=== PATIENT | female | born 1990 | race American Indian/Alaskan Native ===

== ENCOUNTER 2018-05-06 01:22 | Emergency (ER) | payer MEDICAID ==
[2018-05-06] MEDS ORDERED: TYLENOL PO ONE (02:20)
[2018-05-06] MEDS ORDERED: TYLENOL ONE (02:21)
[2018-05-06 03:24] LABS: Bacteria,Urine 2+ /HPF (Negative); Bilirubin,Urine NEG (Negative); Blood,Urine SM (Negative); Color,Urine Yellow (Yellow); Hyaline Casts,Urine 1 /LPF; Mucus,Urine 1+ /HPF
[2018-05-06 03:27] LABS: HCG Qualitative,Urine Negative (Negative)
[2018-05-06] MEDS ORDERED: ZOFRAN ODT ONE (03:45)
[2018-05-06] MEDS ORDERED: ZOFRAN ODT PO ONE (03:49)
[2018-05-06] MEDS ORDERED: ROCEPHIN IM ONE (04:09)
[2018-05-06] MEDS ORDERED: XYLOCAINE 1% MPF 5 mL INFILTRATI ONE (04:09)
[2018-05-06 04:44] LABS: Basophils # (Auto) 0.1 K/mm3 (0.0-0.1); Basophils % (Auto) 1.3 % (0.0-1.8); Eosinophils # (Auto) 0.1 K/mm3 (0.0-0.4); Eosinophils % (Auto) 1.3 % (0.0-4.3); Hematocrit 39.7 % (30.3-42.9); Hemoglobin 13.3 gm/dl (10.1-14.3); Lymphocytes # (Auto) 2.8 K/mm3 (1.2-5.4); Lymphocytes % (Auto) 29.2 % (13.4-35.0); Mean Corpuscular HGB Conc 33 % (30-34); Mean Corpuscular Hemoglobin 29 pg (28-32); Mean Corpuscular Volume 86 fl (79-97); Monocytes # (Auto) 0.8 K/mm3 (0.0-0.8); Monocytes % (Auto) 8.3 % (0.0-7.3); Platelet Count 296 K/mm3 (140-440); Red Blood Count 4.64 M/mm3 (3.65-5.03); Red Cell Distribution Width 13.8 % (13.2-15.2)
[2018-05-06] MEDS ORDERED: MOTRIN PO ONE (04:47)
--- NOTE | 2018-05-06 04:49 | Emergency Department Report ---
ED Female HPI - General Chief complaint: Back Pain/Injury Stated complaint: ABD PAIN Time Seen by Provider: 05/06/18 04:08 Source: patient Mode of arrival: Ambulatory Limitations: No Limitations - History of Present Illness Initial comments: This is a 27-year-old female nontoxic, well nourished in appearance, no acute signs of distress presents to the ED with c/o of low back pain with dysuria, polyuria, emergency area times one week. Patient stated that she had an episode of one vomiting with nausea but currently in the ED denies any nausea or vomiting. patient denies any trauma to the back. Patient denies any radiation of pain. Patient describes pain as aching with episodes. Patient denies any vaginal discharge. Patient denies any vaginal ulcers or lesions. Patient denies any nausea, vomiting, chest pain, shortness of breathe, fever, chills, headache, numbness, tingling, stiff neck. Patient denies any urinary symptoms. Patient denies any allergies with PMH includes DM. MD Complaint: dysuria, other (back pain) -: week(s) (1) Severity: mild Severity scale (0 -10): 8 Quality: burning, aching Consistency: constant Improves with: none Worsens with: urination Are you Now?: No Last Menstrual Period: 04/10/18 EDC: 01/15/19 Associated Symptoms: dysuria, hematuria. denies: vaginal discharge, vaginal bleeding, abdominal pain, nausea/vomiting, fever/chills, headaches, loss of appetite, rash, seizure, shortness of breath, syncope, weakness - Related Data Previous Rx's Medication Instructions Recorded Last Taken Type Ciprofloxacin HCl [Ciprofloxacin 500 mg PO Q12HR #14 tab 05/06/18 Unknown Rx TAB] Allergies Allergy/AdvReac Type Severity Reaction Status Date / Time No Known Allergies Allergy Verified 05/06/18 02:24 ED Review of Systems ROS: Stated complaint: ABD PAIN Other details as noted in HPI Constitutional: denies: chills, fever Eyes: denies: eye pain, eye discharge, vision change ENT: denies: ear pain, throat pain Respiratory: denies: cough, shortness of breath, wheezing Cardiovascular: denies: chest pain, palpitations Endocrine: no symptoms reported Gastrointestinal: denies: abdominal pain, nausea, diarrhea Genitourinary: urgency, dysuria, frequency, hematuria. denies: discharge, abnormal menses, dyspareunia Musculoskeletal: back pain. denies: joint swelling, arthralgia Skin: denies: rash, lesions Neurological: denies: headache, weakness, paresthesias Psychiatric: denies: anxiety, depression Hematological/Lymphatic: denies: easy bleeding, easy bruising ED Past Medical Hx - Past Medical History Previous Medical History?: Yes Hx Diabetes: Yes (TYPE 2) - Surgical History Past Surgical History?: No - Social History Smoking Status: Never Smoker Substance Use Type: Alcohol - Medications Home Medications: Home Medications Medication Instructions Recorded Confirmed Last Taken Type Ciprofloxacin HCl [Ciprofloxacin 500 mg PO Q12HR #14 tab 05/06/18 Unknown Rx TAB] ED Physical Exam - General Limitations: No Limitations General appearance: alert, in no apparent distress - Head Head exam: Present: atraumatic, normocephalic - Eye Eye exam: Present: normal appearance Pupils: Present: normal accommodation - ENT ENT exam: Present: normal exam, mucous membranes moist - Neck Neck exam: Present: normal inspection, full ROM - Respiratory Respiratory exam: Present: normal lung sounds bilaterally. Absent: respiratory distress, wheezes, rales, rhonchi, stridor, chest wall tenderness, accessory muscle use, decreased breath sounds, prolonged expiratory - Cardiovascular Cardiovascular Exam: Present: regular rate, normal rhythm, normal heart sounds. Absent: irregular rhythm, systolic murmur, diastolic murmur, rubs, gallop - GI/Abdominal GI/Abdominal exam: Present: soft, normal bowel sounds. Absent: distended, tenderness, guarding, rebound, rigid, diminished bowel sounds - Rectal Rectal exam: Present: deferred - Extremities Exam Extremities exam: Present: normal inspection, full ROM, normal capillary refill. Absent: tenderness - Back Exam Back exam: Present: normal inspection, full ROM, paraspinal tenderness (lumbar region). Absent: tenderness, CVA tenderness (R), CVA tenderness (L), muscle spasm, vertebral tenderness, rash noted - Expanded Back Exam Expanded Back exam: Absent: saddle anesthesia Back exam: Negative Straight Leg Raising: Left, Right - Neurological Exam Neurological exam: Present: alert, oriented X3, normal gait - Psychiatric Psychiatric exam: Present: normal affect, normal mood - Skin Skin exam: Present: warm, dry, intact, normal color. Absent: rash ED Course Vital Signs 05/06/18 02:26 Temperature 98.6 F Pulse Rate 115 H Respiratory 18 Rate Blood Pressure 120/81 O2 Sat by Pulse 98 Oximetry - Reevaluation(s) Reevaluation #1: 05/06/18 04:49 Patient is speaking in full sentences with no signs of distress noted. ED Medical Decision Making - Lab Data Result diagrams: 05/06/18 04:27 - Medical Decision Making This is a 27-year-old male that presents with UTI. Patient is stable was examined by me. UA with elevated WBCs, leukocytes, and RBCs. PAtient received Rocephin IM. Urine culture ordered and pending. There is no spinal tenderness. There is no cauda equina syndrome during examination. No bladder or bowel instability. Patient received Motrin in the ED which patient stated that symptoms has resolved and subsided. Patient is discharged with Motrin and Cipro. Patient was referred to Follow-up with a primary care doctor in 3-5 days or if symptoms worsen and continue return to emergency room as soon as possible. At time of discharge, the patient does not seem toxic or ill in appearance. No acute signs of distress noted. Patient agrees to discharge treatment plan of care. No further questions noted by the patient. This chart is dictated with using [employer] Critical care attestation.: If time is entered above; I have spent that time in minutes in the direct care of this critically ill patient, excluding procedure time. ED Disposition Clinical Impression: UTI (urinary tract infection) Qualifiers: Urinary tract infection type: site unspecified Hematuria presence: with hematuria Qualified Code(s): N39.0 - Urinary tract infection, site not specified ; R31.9 - Hematuria, unspecified Disposition: DC-01 TO HOME OR SELFCARE Is pt being admited?: No Does the pt Need Aspirin: No Condition: Stable Instructions: Urinary Tract Infection in Women (ED), Ciprofloxacin (By mouth) Additional Instructions: Follow-up with your primary care doctor in 3-5 days or if symptoms worsen such as bladder or bowel stability, chest pain, short of breath, numbness or tingling sensation in extremities, headache, dizziness, visual changes, nausea vomiting, or abdominal pain, return back to emergency room as was possible. Prescriptions: Ciprofloxacin HCl [Ciprofloxacin TAB] 500 mg PO Q12HR #14 tab Referrals: ROBERT VILLAREAL MD [Primary Care Provider] - 3-5 Days PRIMARY CAREMD [Referring] - 3-5 Days CRISTI LLANOS MD [Staff Physician] - 3-5 Days [facility] [Outside] - 3-5 Days [facility] [Outside] - 3-5 Days Forms: Work/School Release Form(ED)
[2018-05-06 05:07] LABS: BUN/Creatinine Ratio 10; Blood Urea Nitrogen 7 mg/dL (7-17); Calcium 9.3 mg/dL (8.4-10.2); Hemolysis Index 1
[2018-05-06 05:43] VITALS: BP 122/80
== END 2018-05-06 05:43 | disposition home or self-care (01) ==
LOC: ED 01:22
DX: N39.0 Urinary tract infection, site not specified (principal); E11.9 Type 2 diabetes mellitus without complications
CPT/HCPCS: 36415; 80048; 81001; 81025; 85025; 87086; 96372; 99283; J0696; 87076; 87186; Q0162

== ENCOUNTER 2019-04-12 00:29 | Emergency (ER) | payer OTHER ==
[2019-04-12] MEDS ORDERED: TYLENOL ONE (00:40)
[2019-04-12] MEDS ORDERED: TYLENOL PO ONE (00:40)
[2019-04-12 01:11] LABS: Basophils # (Auto) 0.1 K/mm3 (0.0-0.1); Basophils % (Auto) 0.7 % (0.0-1.8); Eosinophils # (Auto) 0.2 K/mm3 (0.0-0.4); Eosinophils % (Auto) 2.1 % (0.0-4.3); Hematocrit 40.6 % (30.3-42.9); Hemoglobin 13.4 gm/dl (10.1-14.3); Lymphocytes # (Auto) 2.6 K/mm3 (1.2-5.4); Mean Corpuscular HGB Conc 33 % (30-34); Mean Corpuscular Volume 86 fl (79-97); Monocytes # (Auto) 0.7 K/mm3 (0.0-0.8); Monocytes % (Auto) 8.1 % (0.0-7.3); Platelet Count 325 K/mm3 (140-440); Red Cell Distribution Width 13.9 % (13.2-15.2)
[2019-04-12 01:17] LABS: Bacteria,Urine 1+ /HPF (Negative); Bilirubin,Urine NEG (Negative); Blood,Urine MOD (Negative); Color,Urine Yellow (Yellow)
[2019-04-12 01:18] LABS: WBC,Urine > 182.0 /HPF (0.0-6.0)
[2019-04-12 01:31] LABS: Alanine Aminotransferase 28 units/L (7-56); Albumin 4.1 g/dL (3.9-5); BUN/Creatinine Ratio 15; Blood Urea Nitrogen 9 mg/dL (7-17); Calcium 9.8 mg/dL (8.4-10.2); Hemolysis Index 9
[2019-04-12] MEDS ORDERED: NACL 0.9% 1000 ML 1,000 ML IV ONE (03:51)
[2019-04-12] MEDS ORDERED: ZOFRAN IV ONE (03:51)
[2019-04-12] MEDS ORDERED: ROCEPHIN/NS 1 GM/50 ML 1 GM/50 ML BAG IV ONE (03:51)
[2019-04-12] MEDS ORDERED: TORADOL IV ONE (03:51)
--- NOTE | 2019-04-12 05:49 | Cat Scan Report ---
PROCEDURE: CT ABDOMEN PELVIS WO CON TECHNIQUE: Routine axial imaging was obtained of the abdomen and pelvis without oral or IV contrast. Sagittal and coronal reconstructions were reviewed. HISTORY: abd pain COMPARISONS: None FINDINGS: The lung bases are clear. Pleural fluid is not seen. The liver, gallbladder and biliary tree appear normal. The pancreas, spleen, and adrenal glands appea r normal. The kidneys show no evidence of stones or hydronephrosis. The bowel loops are normal in leif iber and course. The appendix is not enlarged. There is no evidence of free fluid or adenopathy. In the pelvis the uterus and bladder appear normal. There are multiple phleboliths along the floor of the pelvis. There is a punctate calcification in close proximity to the left UVJ. A nonobstructing 1 mm calcification in the distal left UVJ cannot entirely be ruled out. The skeletal structures appear well-maintained. IMPRESSION: No acute process in the abdomen and pelvis. No evidence renal stones or hydronephrosis. Suspicious 1 mm in diameter calcification in the expected position of the left UVJ. A nonobstructing stone in the distal left ureter cannot entirely be ruled out.. This document is electronically signed by Anil Melendez MD., Apr 12 2019 05:47:17 AM ET
--- NOTE | 2019-04-12 05:56 | Emergency Department Report ---
ED Abdominal Pain HPI - General Chief Complaint: Abdominal Pain Stated Complaint: LEFT LOWER FLANK PAIN Time Seen by Provider: 04/12/19 03:50 Source: patient Mode of arrival: Ambulatory Limitations: No Limitations - History of Present Illness Initial Comments: pt pt is a 28 y/o aaf who presents for left flank pain radiating to superpubic x 4 days pt deneis fever or chills, no n/v no hematuria no hx of renal stones MD Complaint: flank pain Onset/Timin -: days(s) Location: L flank Radiation: suprapubic Migration to: suprapubic Severity: moderate Severity scale (0 -10): 7 Quality: sharp Consistency: intermittent Improves With: rest Worsens With: other (voiding ) Associated Symptoms: nausea, dysuria. denies: vomiting, diarrhea, fever, chills, constipation, melena - Related Data LMP Date: 03/28/19 Previous Rx's Medication Instructions Recorded Last Taken Type Ciprofloxacin HCl [Ciprofloxacin 500 mg PO Q12HR #14 tab 05/06/18 Unknown Rx TAB] Ciprofloxacin HCl [Ciprofloxacin 500 mg PO BID 10 Days #20 tab 04/12/19 Unknown Rx TAB] Tamsulosin [Flomax] 0.4 mg PO QDAY 15 Days #15 cap 04/12/19 Unknown Rx traMADol [Ultram] 50 mg PO Q6HR PRN #12 tablet 04/12/19 Unknown Rx Allergies Allergy/AdvReac Type Severity Reaction Status Date / Time No Known Allergies Allergy Verified 05/06/18 02:24 ED Review of Systems ROS: Stated complaint: LEFT LOWER FLANK PAIN Other details as noted in HPI Constitutional: denies: chills, fever Eyes: denies: eye pain, eye discharge, vision change ENT: denies: ear pain, throat pain Respiratory: denies: cough, shortness of breath, wheezing Cardiovascular: denies: chest pain, palpitations Endocrine: no symptoms reported Gastrointestinal: denies: abdominal pain, nausea, diarrhea Genitourinary: urgency, dysuria. denies: frequency, hematuria, discharge Musculoskeletal: back pain (left flank pain ) Skin: denies: rash, lesions Neurological: denies: headache, weakness, paresthesias Psychiatric: denies: anxiety, depression Hematological/Lymphatic: denies: easy bleeding, easy bruising ED Past Medical Hx - Past Medical History Previous Medical History?: Yes Hx Diabetes: Yes (TYPE 2) - Surgical History Past Surgical History?: No - Social History Smoking Status: Never Smoker Substance Use Type: None - Medications Home Medications: Home Medications Medication Instructions Recorded Confirmed Last Taken Type Ciprofloxacin HCl [Ciprofloxacin 500 mg PO Q12HR #14 tab 05/06/18 Unknown Rx TAB] Ciprofloxacin HCl [Ciprofloxacin 500 mg PO BID 10 Days #20 tab 04/12/19 Unknown Rx TAB] Tamsulosin [Flomax] 0.4 mg PO QDAY 15 Days #15 cap 04/12/19 Unknown Rx traMADol [Ultram] 50 mg PO Q6HR PRN #12 tablet 04/12/19 Unknown Rx ED Physical Exam - General Limitations: No Limitations General appearance: alert, in no apparent distress - Head Head exam: Present: atraumatic, normocephalic - Eye Eye exam: Present: normal appearance, PERRL, EOMI Pupils: Present: normal accommodation - ENT ENT exam: Present: mucous membranes moist - Neck Neck exam: Present: normal inspection, full ROM. Absent: tenderness, lymphadenopathy - Respiratory Respiratory exam: Present: normal lung sounds bilaterally, rhonchi, stridor, chest wall tenderness. Absent: respiratory distress, wheezes - Cardiovascular Cardiovascular Exam: Present: regular rate, normal rhythm, normal heart sounds. Absent: systolic murmur, diastolic murmur, rubs, gallop - GI/Abdominal GI/Abdominal exam: Present: soft, normal bowel sounds, other (left flank tenderness to deep palpation). Absent: distended, tenderness, guarding, rebound, rigid, bruit, hernia - Rectal Rectal exam: Present: deferred - Extremities Exam Extremities exam: Present: normal inspection, full ROM. Absent: tenderness - Back Exam Back exam: Present: normal inspection, full ROM, tenderness, CVA tenderness (L), paraspinal tenderness. Absent: muscle spasm, vertebral tenderness - Neurological Exam Neurological exam: Present: alert, oriented X3, CN II-XII intact, normal gait, reflexes normal - Psychiatric Psychiatric exam: Present: normal affect, normal mood - Skin Skin exam: Present: warm, dry, intact, normal color. Absent: rash ED Course Vital Signs 04/12/19 04/12/19 00:40 00:45 Temperature 99 F Pulse Rate 112 H Respiratory 20 18 Rate Blood Pressure 136/90 O2 Sat by Pulse 98 Oximetry ED Medical Decision Making - Lab Data Result diagrams: 04/12/19 00:52 04/12/19 00:52 - Radiology Data Radiology results: report reviewed, image reviewed PROCEDURE: CT ABDOMEN PELVIS WO CON TECHNIQUE: Routine axial imaging was obtained of the abdomen and pelvis without oral or IV contrast. Sagittal and coronal reconstructions were reviewed. HISTORY: abd pain COMPARISONS: None FINDINGS: The lung bases are clear. Pleural fluid is not seen. The liver, gallbladder and biliary tree appear normal. The pancreas, spleen, and adrenal glands appear normal. The kidneys show no evidence of stones or hydronephrosis. The bowel loops are normal in caliber and course. The appendix is not enlarged. There is no evidence of free fluid or adenopathy. In the pelvis the uterus and bladder appear normal. There are multiple phleboliths along the floor of the pelvis. There is a punctate calcification in close proximity to the left UVJ. A nonobstructing 1 mm calcification in the distal left UVJ cannot entirely be ruled out. The skeletal structures appear well-maintained. IMPRESSION: No acute process in the abdomen and pelvis. No evidence renal stones or hydronephrosis. Suspicious 1 mm in diameter calcification in the expected position of the left UVJ. A nonobstructing stone in the distal left ureter cannot entirely be ruled out.. This document is electronically signed by Anil Melendez MD., Apr 12 2019 05:47:17 AM ET Transcribed By: RB Dictated By: ANIL MELENDEZ MD Electronically Authenticated By: ANIL MELENDEZ MD Signed Date/Time: 04/12/19 0549 DD/ 1 TD/TT: 04/12/19351 - Medical Decision Making ct abd and pelvis , ? small calculi UVJ no hydronephrosis, , ua: wbc, Leuk, and rbc plan tx for UTI , renal stones, not likley pyeolnephris , ultram , flomax follow up with urology and pcp in 2-3 days Critical care attestation.: If time is entered above; I have spent that time in minutes in the direct care of this critically ill patient, excluding procedure time. ED Disposition Clinical Impression: Kidney stone UTI (urinary tract infection) Qualifiers: Urinary tract infection type: acute cystitis Hematuria presence: without hematuria Qualified Code(s): N30.00 - Acute cystitis without hematuria Disposition: TO HOME OR SELFCARE Is pt being admited?: No Does the pt Need Aspirin: No Condition: Stable Instructions: Abdominal Pain (ED), Dysuria (ED), Urinary Tract Infection in Women (ED) Prescriptions: Ciprofloxacin HCl [Ciprofloxacin TAB] 500 mg PO BID 10 Days #20 tab Tamsulosin [Flomax] 0.4 mg PO QDAY 15 Days #15 cap traMADol [Ultram] 50 mg PO Q6HR PRN #12 tablet PRN Reason: Pain Referrals: RAJESH MUÑIZ MD [Staff Physician] - 3-5 Days [place] BETHANY GARCIA MD [Primary Care Provider] - 3-5 Days Forms: Work/School Release Form(ED) Time of Disposition: 06:22
[2019-04-12 06:16] VITALS: BP 103/63
== END 2019-04-12 06:43 | disposition home or self-care (01) ==
LOC: ED 00:29
DX: N39.0 Urinary tract infection, site not specified (principal); N20.0 Calculus of kidney; E11.9 Type 2 diabetes mellitus without complications
CPT/HCPCS: 36415; 74176; 80053; 81001; 84703; 85025; 96365; 96375; 99284; J0696; J1885; J2405; J7030